=== PATIENT | female | born 1990 | race African-American/Black ===

== ENCOUNTER 2016-09-12 15:48 | Emergency (ER) | payer OTHER ==
[2016-09-12 15:54] VITALS: BP 138/96; BMI 49.8
[2016-09-12] MEDS ORDERED: DEXAMETHASONE LIQUID 0.5 MG/5 ML 240 ML BULK BOTTLE PO ONE (16:25)
[2016-09-12] MEDS ORDERED: DEXAMETHASONE SOD PHOSPHATE 10 MG/1 ML VIAL ONE (16:29)
--- NOTE | 2016-09-12 16:41 | PDOC ---
History of Present Illness - General Chief Complaint: Sore Throat Stated Complaint: THROAT PAIN Time Seen by Provider: 09/12/16 15:59 History Source: Patient Exam Limitations: No Limitations - History of Present Illness Initial Comments: 09/12/16 16:38 26-year-old female presents the ED with complaints of sore throat, fever since yesterday. Patient denies headache, neck stiffness, chest pain, shortness of breath or cough. Patient states has difficulty swallowing solids but is able to tolerate liquids. Patient denies smoking history. Timing/Duration: 4-6 hours Severity: mild Associated Symptoms: reports: fever/chills Past History - Past Medical History Allergies/Adverse Reactions: Allergies Allergy/AdvReac Type Severity Reaction Status Date / Time Penicillins Allergy Verified 09/12/16 15:54 Home Medications: Ambulatory Orders Azithromycin [Zithromax 250mg Tablets -] 250 mg PO UTDICT #6 tab 09/12/16 Other medical history: denies - Psycho/Social/Smoking Cessation Hx Suicidal Ideation: No Smoking History: Never smoked Patient Lives Alone: No Lives with/in: parents Review of Systems - Review of Systems Able to Perform ROS?: Yes Constitutional: Yes: Fever HEENTM: Yes: Throat Pain, Throat Swelling, Difficulty Swallowing ABD/GI: No: Symptoms Reported Integumentary: No: Symptoms Reported Neurological: No: Symptoms reported *Physical Exam - Vital Signs Last Vital Signs Temp Pulse Resp BP Pulse Ox 102.5 F H 122 H 20 138/96 97 09/12/16 15:50 09/12/16 15:50 09/12/16 15:50 09/12/16 15:50 09/12/16 15:50 - Physical Exam General Appearance: Yes: Nourished, Appropriately Dressed. No: Apparent Distress HEENT: positive: EOMI, IRIS, TMs Normal, Muffled/Hoarse voice (slightly garbled) , Tonsillar Exudate (3 + erythematous tonsils bilateral. uvula midline.). negative: Pale Conjunctivae Neck: positive: Supple, Lymphadenopathy (R), Lymphadenopathy (L) (upper cervical bilateral) Respiratory/Chest: positive: Lungs Clear, Normal Breath Sounds. negative: Respiratory Distress, Accessory Muscle Use Cardiovascular: positive: Regular Rhythm, Tachycardia. negative: Murmur Gastrointestinal/Abdominal: positive: Soft. negative: Tenderness Integumentary: negative: Rash Neurologic: positive: Motor Strength 5/5 (Ambulatory) ED Treatment Course - Medications Given in the ED: ED Medications Discontinued Medications Generic Name Dose Route Start Last Admin Trade Name Tj PRN Reason Stop Dose Admin Dexamethasone 10 mg 09/12/16 16:25 09/12/16 16:31 Decadron Liquid - PO 09/12/16 16:26 10 mg ONCE ONE Administration Medical Decision Making - Medical Decision Making 09/12/16 16:41 Patient fever and sore throat. Patient on exam had 3+ exudative erythematous tonsils with slightly garbled speech. Patient concerning for tonsillitis/ strep. Patient ordered for Decadron patient was given Tylenol in triage. Rapid strep sent. 09/12/16 16:53 Pt + for strp. Rx sent for zpak. Will revitalize *DC/Admit/Observation/Transfer Diagnosis at time of Disposition: Acute streptococcal pharyngitis - Discharge Dispostion Disposition: HOME Condition at time of disposition: Improved - Prescriptions Prescriptions: Azithromycin [Zithromax 250mg Tablets -] 250 mg PO UTDICT #6 tab - Referrals Referrals: Rafia Martinez [Primary Care Provider] - - Patient Instructions Printed Discharge Instructions: DI for Strep Throat Additional Instructions: Please take antibiotics as prescribed until completed. Please give Motrin 600 mg every 8 hours for fever and pain control. Please stay well-hydrated and eat soft foods that are nonabrasive. If symptoms worsen please return to ED. Otherwise follow-up with the oil rig driller.
[2016-09-12] MEDS ORDERED: ACETAMINOPHEN 325 MG TABLET (FP) PO ONE (16:56)
[2016-09-12] MEDS ORDERED: IBUPROFEN 100 MG/5 ML UNIT DOSE CUPS PO ONE (16:57)
[2016-09-12] MEDS ORDERED: IBUPROFEN 100 MG/5 ML UNIT DOSE CUPS ONE (17:00)
[2016-09-12 17:03] VITALS: PULSE 112; TEMP 102.6
== END 2016-09-12 17:02 | disposition home or self-care (01) ==
LOC: JERFT 15:48
DX: J02.0 Streptococcal pharyngitis (principal); B95.0 Streptococcus, group A, as the cause of diseases classified elsewhere
CPT/HCPCS: 87070; 87430; 99281-25